=== PATIENT | female | born 2000 | race Caucasian/White ===

== ENCOUNTER 2020-10-22 14:48 | Emergency (ER) | payer OTHER ==
[~2020-10-22] VITALS: Ht 167.6 cm; Wt 136.1 kg
[2020-10-22] MEDS ORDERED: AMOXIL 875 MG875 M1 PO (15:29)
[2020-10-22] MEDS ORDERED: LIDOCAINE VISC100 ML SWISH&SPIT (15:29)
[2020-10-22] MEDS ORDERED: APAP W/CODEINE1 TA2 PO (15:29)
[2020-10-22 15:47] VITALS: BP 133/71
== END 2020-10-22 15:49 | disposition home or self-care (01) ==
LOC: M.ERS 14:48
DX: K08.89 Other specified disorders of teeth and supporting structures (principal)